=== PATIENT | female | born 2000 | race Two or more races ===

== ENCOUNTER 2025-07-02 20:05 | Emergency (ER) | payer MEDICAID ==
[~2025-07-02] VITALS: Ht 154.9 cm; Wt 92.6 kg
[2025-07-02 21:09] VITALS: BP 116/83; PULSE 86; RESP 19; TEMP 98.6; O2SAT 98
[2025-07-02] MEDS: OXYCODONE W/ ACETAMINOPHEN 5/325MG TABLET PO ONE (21:09)
[2025-07-02] MEDS: LIDOCAINE 1% HCL (LOCAL ANESTH.) INJ 20ML MDV ID ONE (21:13)
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
[2025-07-02] MEDS: LIDOCAINE W/ EPINEPHRINE 1% 20ML VIAL ID ONE (21:54)
[2025-07-02] MEDS: LIDOCAINE W/ EPINEPHRINE 2% INJ 20ML VIAL ONE (21:54)
[2025-07-02] MEDS ORDERED: TIZA-142 PO (22:06)
[2025-07-02] MEDS ORDERED: IBUP-1456 PO (22:06)
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
[2025-07-02] MEDS ORDERED: ZOFR4T PO (22:25)
== END 2025-07-02 22:12 | disposition home or self-care (01) ==
LOC: ER 20:05
DX: S01.81XA Laceration without foreign body of other part of head, initial encounter (principal); S13.4XXA Sprain of ligaments of cervical spine, initial encounter; S80.11XA Contusion of right lower leg, initial encounter; V89.2XXA Person injured in unspecified motor-vehicle accident, traffic, initial encounter; Y93.89 Activity, other specified; Y92.410 Unspecified street and highway as the place of occurrence of the external cause; Y99.8 Other external cause status
CPT/HCPCS: 12013; 70450; 72125; 73590; 99284; J2003